=== PATIENT | female | born 1960 | race Caucasian/White ===

== ENCOUNTER 2021-05-22 10:32 | Observation (INO) | payer BC ==
[2021-05-22] MEDS ORDERED: BABY ASPIRIN 81 MG CHEW PO ONE (11:09)
[2021-05-22 11:25] LABS: BASOPHIL % 0.6 % (0.0-0.4); Basophil (Absolute #) 0.05 (0-0.4); Eosinophil % 2.3 % (0.00-5.0); Eosinophil (Absolute #) 0.21 (0-0.5); Hematocrit 36.3 % (35-47); Hemoglobin 11.4 gm/dl (12.0-16.0); Lymphocyte (Absolute #) 2.02 (1.0-4.6); Lymphocytes % 22.4 % (24.0-44.0); Mean Corpuscular Hemoglobin 29.8 pg (26-32); Mean Corpuscular Hgb Concent. 31.4 g/dl (32-36); Monocyte (Absolute #) 0.73 (0.0-1.3); Monocytes % 8.1 % (0.0-12.0); Neutrophil % 66.6 % (36.0-66.0); Platelet Count 300 K/mm3 (150-450); Red Blood Count 3.82 M/mm3 (4.1-5.4); Red Cell Distribution Width 13.7 % (11.5-14.0)
[2021-05-22] MEDS ORDERED: BABY ASPIRIN 81 MG CHEW ONE (11:29)
--- NOTE | 2021-05-22 12:07 | XRAY ---
Indication: Chest pain. Comparison: None Portable apical lordotic chest slightly underinflated and clear. Heart not enlarged. Bony thorax intact with mild osteopenia and degenerative changes. Impression: Nonacute chest with chronic bony findings.
--- NOTE | 2021-05-22 12:44 | ERPHSYRPT ---
- History of Present Illness Time Seen by Provider: 05/22/21 10:39 Historian: patient Exam Limitations: no limitations Patient Subjective Stated Complaint: pt here for fluttering for 2 days now, Triage Nursing Assessment: pt alert, arrived per wc, face mask in place, resp easy, skin w/d/p, abd soft. slight swelling to lower legs she states is normal for her Physician History: 60 years old female with history of hypertension, hyperlipidemia, diabetes mellitus presented in the ER with chief complaint of fluttering sensation since yesterday intermittent initially and continuous since late afternoon yesterday. Patient also report having some pain dull aching underneath her left breast without radiation, mild to moderate without any significant aggravating or relieving factors. Denies any associated shortness of breath. No fever chills cough reported. Denies any history of CAD or rhythm abnormalities. Timing/Duration: yesterday, constant, gradual onset, worse Activities at Onset: rest Quality: aching Chest Pain Radiation: no radiation Severity of Pain-Max: moderate Severity of Pain-Current: mild Modifying Factors: Improves With: nothing Associated Symptoms: fatigue Prior Chest Pain/Cardiac Workup: no prior chest pain, no prior cardiac workup Nitro Today/Relief: no nitro taken today Aspirin Treatment Today: no aspirin today Allergies/Adverse Reactions: No Known Drug Allergies Allergy (Unverified 05/22/21 10:51) Home Medications: Cyanocobalamin (Vitamin B-12) [Vitamin B-12] 1 ea DAILY 05/22/21 [History] Ferrous Sulfate 1 ea DAILY 05/22/21 [History] Furosemide 20 mg [Lasix 20 mg] 1 ea DAILY 05/22/21 [History] Glipizide 10 mg [Glucotrol 10 MG] 1 ea DAILY 05/22/21 [History] Lisinopril 20 mg [Zestril 20 MG] 20 mg PO DAILY 05/22/21 [History] Metformin HCl 500 mg [Glucophage 500 MG] 1,500 mg DAILY 05/22/21 [History] Metformin HCl 500 mg [Glucophage 500 MG] 100 mg DAILY 05/22/21 [History] Potassium Chloride [Klor-Con] 1 ea DAILY 05/22/21 [History] Sitagliptin Phosphate [Januvia] 199 mg PO DAILY 05/22/21 [History] Hx Tetanus, Diphtheria Vaccination/Date Given: No Hx Influenza Vaccination/Date Given: No Hx Pneumococcal Vaccination/Date Given: No Immunizations Up to Date: No Travel Risk - International Travel Have you traveled outside of the country in past 3 weeks: No - Coronavirus Screening Are you exhibiting any of the following symptoms?: No Close contact with a COVID-19 positive Pt in past 14-21 Days: No - Vaccine Status Have you recieved a Covid-19 vaccination: No - Review of Systems Constitutional: No Symptoms Eyes: No Symptoms Ears, Nose, & Throat: No Symptoms Respiratory: No Symptoms Cardiac: Chest Pain, Palpitations Abdominal/Gastrointestinal: No Symptoms Genitourinary Symptoms: No Symptoms Musculoskeletal: No Symptoms Skin: No Symptoms Neurological: No Symptoms Psychological: No Symptoms Endocrine: No Symptoms Hematologic/Lymphatic: No Symptoms Immunological/Allergic: No Symptoms - Past Medical History Pertinent Past Medical History: Yes Cardiac History: High Cholesterol Endocrine Medical History: Diabetes Type II - Past Surgical History Past Surgical History: Yes Female Surgical History: Section - Social History Smoking Status: Never smoker Exposure to second hand smoke: No Drug Use: none Patient Lives Alone: No - Female History Hx Last Menstrual Period: post Hx Now: No - Nursing Vital Signs Nursing Vital Signs: Initial Vital Signs Temperature 97.2 F 05/22/21 10:47 Pulse Rate 77 05/22/21 10:47 Respiratory Rate 18 05/22/21 10:47 Blood Pressure 187/97 05/22/21 10:47 O2 Sat by Pulse Oximetry 96 05/22/21 10:47 Pain Scale Pain Intensity 2 - Physical Exam General Appearance: no apparent distress, alert, anxiety Eye Exam: PERRL/EOMI, eyes nml inspection Ears, Nose, Throat Exam: normal ENT inspection, pharynx normal Neck Exam: normal inspection, non-tender, supple, full range of motion Respiratory Exam: normal breath sounds, lungs clear Cardiovascular Exam: regular rate/rhythm, normal heart sounds Gastrointestinal/Abdomen Exam: soft, normal bowel sounds, No tenderness Back Exam: normal inspection, normal range of motion Extremity Exam: normal inspection, normal range of motion Neurologic Exam: alert, oriented x 3, cooperative, regional forester II-XII nml as tested, No sensation nml, No motor deficits Skin Exam: normal color SpO2 Interpretation: normal SpO2: 95 O2 Delivery: Room Air - Course EKG Interpreted by Me: RATE ([id number]), Sinus Rhythm, NORMAL AXIS, NORMAL INTERVALS, NORMAL QRS Ordered Tests: Active Orders 24 hr Category Date Time Status CHEST 1 VIEW (PORTABLE) Stat Exams 05/22/21 11:09 Completed CHEST WITH CONTRAST [CT] Stat Exams 05/22/21 12:41 Ordered CBC W DIFF Stat Lab 05/22/21 11:15 Completed CMP Stat Lab 05/22/21 11:15 Completed D-DIMER QUANTITATIVE Stat Lab 05/22/21 11:15 Completed NT PRO BNP Stat Lab 05/22/21 11:15 Completed TROPONIN Q3H Lab 05/22/21 11:15 Completed TROPONIN Q3H Lab 05/22/21 14:15 Ordered TROPONIN Q3H Lab 05/22/21 17:15 Ordered TROPONIN Q3H Lab 05/22/21 20:15 Ordered TROPONIN Q3H Lab 05/22/21 23:15 Ordered Transfer Order Routine Transfer 05/22/21 Ordered Medication Summary Generic Name Dose Route Start Last Admin Trade Name Freq PRN Reason Stop Dose Admin Enoxaparin Sodium 125 mg 05/22/21 14:00 Enoxaparin Sodium 120 Mg/0.8 Ml Syringe SQ 06/21/21 13:59 Q12H ELVA Discontinued Medications Generic Name Dose Route Start Last Admin Trade Name Freq PRN Reason Stop Dose Admin Aspirin 324 mg 05/22/21 11:09 05/22/21 11:34 Aspirin 81 Mg Tab.Chew PO 05/22/21 11:10 324 mg STAT ONE Administration Aspirin Confirm 05/22/21 11:29 Aspirin 81 Mg Tab.Chew Administered 05/22/21 11:30 Dose 324 mg .ROUTE .STK-MED ONE Nitroglycerin Confirm 05/22/21 13:23 Nitroglycerin 1 Gm Packet Administered 05/22/21 13:24 Dose 1 gm .ROUTE .STK-MED ONE Nitroglycerin 1 gm 05/22/21 13:25 05/22/21 13:26 Nitroglycerin 1 Gm Packet TOP 05/22/21 13:26 1 gm STAT ONE Administration Lab/Rad Data: Laboratory Result Diagrams 05/22/21 11:15 05/22/21 11:15 Laboratory Results 05/22/21 05/22/21 05/22/21 Range/Units 11:15 11:15 11:15 WBC (4.0-10.5) K/mm3 RBC (4.1-5.4) M/mm3 Hgb (12.0-16.0) gm/dl Hct (35-47) % MCV (78-100) fl MCH (26-32) pg MCHC (32-36) g/dl RDW (11.5-14.0) % Plt Count (150-450) K/mm3 MPV (7.5-11.0) fl Gran % (36.0-66.0) % Eos # (Auto) (0-0.5) Absolute Lymphs (auto) (1.0-4.6) Absolute Monos (auto) (0.0-1.3) Lymphocytes % (24.0-44.0) % Monocytes % (0.0-12.0) % Eosinophils % (0.00-5.0) % Basophils % (0.0-0.4) % Absolute Granulocytes (1.4-6.9) Basophils # (0-0.4) D-Dimer 884 H* (215-500) ng/mL Sodium 140 (137-145) mmol/L Potassium 5.2 H (3.5-5.1) mmol/L Chloride 104 (98-107) mmol/L Carbon Dioxide 27 (22-30) mmol/L Anion Gap 15.0 (5-15) MEQ/L BUN 25 H (7-17) mg/dL Creatinine 1.35 H (0.52-1.04) mg/dL Estimated GFR 42.7 ML/MIN Glucose 96 (74-106) mg/dL Calcium 9.5 (8.4-10.2) mg/dL Total Bilirubin 0.40 (0.2-1.3) mg/dL AST 24 (14-36) U/L ALT 23 (0-35) U/L Alkaline Phosphatase 81 (38-126) U/L Troponin I < 0.012 (0.000-0.034) ng/mL NT-Pro-B Natriuret Pep 160 (0-900) pg/mL Serum Total Protein 7.1 (6.3-8.2) g/dL Albumin 4.0 (3.5-5.0) g/dL // Range/Units 11:15 WBC 9.0 (4.0-10.5) K/mm3 RBC 3.82 L (4.1-5.4) M/mm3 Hgb 11.4 L (12.0-16.0) gm/dl Hct 36.3 (35-47) % MCV 95.0 (78-100) fl MCH 29.8 (26-32) pg MCHC 31.4 L (32-36) g/dl RDW 13.7 (11.5-14.0) % Plt Count 300 (150-450) K/mm3 MPV 11.0 (7.5-11.0) fl Gran % 66.6 H (36.0-66.0) % Eos # (Auto) 0.21 (0-0.5) Absolute Lymphs (auto) 2.02 (1.0-4.6) Absolute Monos (auto) 0.73 (0.0-1.3) Lymphocytes % 22.4 L (24.0-44.0) % Monocytes % 8.1 (0.0-12.0) % Eosinophils % 2.3 (0.00-5.0) % Basophils % 0.6 (0.0-0.4) % Absolute Granulocytes 6.00 (1.4-6.9) Basophils # 0.05 (0-0.4) D-Dimer (215-500) ng/mL Sodium (137-145) mmol/L Potassium (3.5-5.1) mmol/L Chloride (98-107) mmol/L Carbon Dioxide (22-30) mmol/L Anion Gap (5-15) MEQ/L BUN (7-17) mg/dL Creatinine (0.52-1.04) mg/dL Estimated GFR ML/MIN Glucose (74-106) mg/dL Calcium (8.4-10.2) mg/dL Total Bilirubin (0.2-1.3) mg/dL AST (14-36) U/L ALT (0-35) U/L Alkaline Phosphatase (38-126) U/L Troponin I (0.000-0.034) ng/mL NT-Pro-B Natriuret Pep (0-900) pg/mL Serum Total Protein (6.3-8.2) g/dL Albumin (3.5-5.0) g/dL - Progress Progress: improved Air Movement: fair, good Progress Note: 12/14/21 13:55 60-year-old is evaluated for palpitations and chest pain with no previous history of CAD. EKG showed normal sinus rhythm without any acute ischemic changes and negative initial troponin. Chest x-ray negative for any acute cardiopulmonary findings. Patient has a D-dimer and 800 but has a GFR around 42, cannot do CTA per radiology protocols. I have discussed with Dr. Cabrera, reviewed history, work-up, recommended obtaining VQ scan which would be done day after tomorrow as no nuclear studies are done except on . In the meanwhile she would be anticoagulated with Lovenox. Plan discussed with patient to understand and agrees with it. Blood Culture(s) Obtained: No Antibiotics given: No Discussed with .: Misa Will see patient in: hospital (observation) Counseled pt/family regarding: lab results, diagnosis, rad results - Departure Departure Disposition: Observation Clinical Impression: Chest pain, rule out acute myocardial infarction, Palpitations Condition: Stable Critical Care Time: No
[2021-05-22 12:52] LABS: BILIRUBIN,TOTAL 0.4 mg/dL (0.2-1.3); Calcium 9.5 mg/dL (8.4-10.2); Creatinine 1 1.35 mg/dL (0.52-1.04); EST GLOMERULAR FILTRATION RATE 42.7 ML/MIN; Potassium 5.2 mmol/L (3.5-5.1); Total Protein 7.1 g/dL (6.3-8.2)
[2021-05-22] MEDS ORDERED: NITRO-BID 2% UD PACKETS ONE (13:23)
[2021-05-22] MEDS ORDERED: NITRO-BID 2% UD PACKETS TOP ONE (13:25)
[2021-05-22] MEDS ORDERED: ENOXAPARIN SODIUM SQ SCH (14:00)
[2021-05-22] MEDS ORDERED: ENOXAPARIN SODIUM SQ ONE (14:30)
[2021-05-22 15:20] LABS: INFLUENZA A NEGATIVE (NEGATIVE); INFLUENZA B NEGATIVE (NEGATIVE); RESPIRATORY SYNCTIAL VIRUS NEGATIVE (Negative); SARS-CoV-2 Xpert Express NEGATIVE (NEGATIVE)
[2021-05-22] MEDS ORDERED: HUMALOG SQ PRN (15:50)
[2021-05-22] MEDS ORDERED: Zofran 4 MG/2 ML VIAL IV PRN (15:50)
[2021-05-22] MEDS ORDERED: DUONEB 0.5-3 MG/3 ml Neb IH PRN (15:50)
[2021-05-22] MEDS ORDERED: TYLENOL 325 MG PO PRN (15:50)
[2021-05-22] MEDS ORDERED: MORPHINE SULFATE 2 MG INJ IV PRN (15:50)
[2021-05-22] MEDS ORDERED: Glucophage 500 MG PO SCH (18:00)
[2021-05-22] MEDS ORDERED: Glucotrol Xl 10 MG PO ONE (18:50)
[2021-05-22] MEDS ORDERED: Glucotrol 5 MG ONE (18:55)
[2021-05-22] MEDS ORDERED: NON-FORMULARY ITEM (Glipizide 10 Mg*** [Glucotrol 10 Mg***] 10 MG Tablet) PO SCH (22:00)
[2021-05-22] MEDS ORDERED: Glucotrol 5 MG PO SCH (22:00)
[2021-05-23] MEDS ORDERED: ENOXAPARIN SODIUM SQ SCH (03:00)
[2021-05-23 05:46] LABS: Absolute Neutrophil Ct (ANC) 6.09 (1.4-6.9); BASOPHIL % 0.5 % (0.0-0.4); Basophil (Absolute #) 0.05 (0-0.4); Eosinophil % 2.7 % (0.00-5.0); Eosinophil (Absolute #) 0.25 (0-0.5); Hematocrit 35.5 % (35-47); Lymphocyte (Absolute #) 2.13 (1.0-4.6); Lymphocytes % 23.2 % (24.0-44.0); Mean Cell Volume 96.2 fl (78-100); Mean Corpuscular Hemoglobin 29.8 pg (26-32); Mean Platelet Volume 11.6 fl (7.5-11.0); Monocyte (Absolute #) 0.68 (0.0-1.3); Monocytes % 7.4 % (0.0-12.0); Neutrophil % 66.2 % (36.0-66.0); Platelet Count 297 K/mm3 (150-450); Red Blood Count 3.69 M/mm3 (4.1-5.4); Red Cell Distribution Width 13.8 % (11.5-14.0); White Blood Count 9.2 K/mm3 (4.0-10.5)
[2021-05-23 05:55] LABS: ALBUMIN 3.6 g/dL (3.5-5.0); ANION GAP 11.4 MEQ/L (5-15); BILIRUBIN,TOTAL 0.3 mg/dL (0.2-1.3); Calcium 8.9 mg/dL (8.4-10.2); Creatinine 1 1.35 mg/dL (0.52-1.04); EST GLOMERULAR FILTRATION RATE 42.7 ML/MIN; Potassium 4.3 mmol/L (3.5-5.1); Total Protein 6.8 g/dL (6.3-8.2)
[2021-05-23] MEDS ORDERED: Glucophage 500 MG PO SCH (08:00)
[2021-05-23] MEDS ORDERED: Glucotrol 5 MG PO SCH (08:00)
[2021-05-23] MEDS: PROTONIX 40 MG IV IV SCH ×2 (08:28)
[2021-05-23] MEDS ORDERED: Klor Con 10 MEQ PO SCH (10:00)
[2021-05-23] MEDS ORDERED: Zestril 20 MG PO SCH (10:00)
[2021-05-23] MEDS ORDERED: FEOSOL 325 MG PO SCH (10:00)
[2021-05-23] MEDS ORDERED: Januvia 50 MG PO SCH (10:00)
[2021-05-23] MEDS ORDERED: LASIX 20 MG PO SCH (10:00)
[2021-05-23] MEDS ORDERED: FOLATE 1 MG PO SCH (10:00)
[2021-05-23] MEDS ORDERED: Vitamin B-12 500 MCG PO SCH (10:00)
[2021-05-23] MEDS ORDERED: NON-FORMULARY ITEM (Cyanocobalamin (Vitamin B-12) [Vitamin B-12] 1,000 MCG Capsule) PO SCH (10:00)
--- NOTE | 2021-05-23 11:01 | XRAY ---
Indication: Left arm weakness. Stroke. Multiple contiguous axial images obtained through the head without contrast. Comparison: None Age-appropriate global atrophy and minimal periventricular degenerative micro-ischemia bilaterally. Anterior limb right internal capsule demonstrates tiny remote lacunar infarct. No acute intracranial hemorrhage, abnormal extra-axial fluid collection, or mass effect. Fourth ventricle is midline without hydrocephalus. Robins-white matter differentiation is preserved. Bony calvarium intact. Visualized paranasal sinuses and mastoid air cells are clear. Impression: Atrophy and degenerative micro-ischemia within normal limits for patient's age. Remote lacunar infarct right internal capsule. No acute intracranial abnormalities.
--- NOTE | 2021-05-23 11:38 | SSS ---
DISCHARGE DIAGNOSES: 1) CHEST FLUTTER. 2) LEFT ARM WEAKNESS. HISTORY OF PRESENT ILLNESS: The patient is a 60-year-old white female who presented to the emergency room with complaints of left chest fluttering and soreness over the left sternal border. The patient was seen in the emergency room and felt the need to be admitted for cardiac evaluation and evaluation of the patient's complaint of left arm weakness. The patient also had an elevated D-dimer which could not be evaluated due to elevation of creatinine. The patient had been seeing Dr. Peters previously and saw Tamanna Cagle but the patient is new to me otherwise. PAST MEDICAL/SURGICAL HISTORY: Includes issues with diabetes mellitus type II. She has had previous section. She is menopausal. HOME MEDICATIONS: Currently include Lasix 20 mg a day, glipizide 10 mg twice a day, lisinopril 20 mg a day, metformin 500 mg 2 tablets with evening meal and 3 tablets in the morning. She is on potassium 10 mEq a day, sitagliptin 100 mg a day. ALLERGIES: NKDA. SOCIAL HISTORY: She is a nonsmoker. PHYSICAL EXAMINATION: The patient's vital signs on admission showed temperature 97.2F, pulse 77, respiratory rate 18 and blood pressure 187/97. O2 saturation 96%. HEENT: Normocephalic, atraumatic. Pupils equal round reactive to light. Extraocular movements intact. Oropharynx is pink and moist. NECK: Supple without lymphadenopathy, thyromegaly or JVD. CHEST: Clear to auscultation. HEART: Regular rate and rhythm. There was noted some slight tenderness left sternal border. ABDOMEN: Soft. No palpable masses. EXTREMITIES: Without cyanosis, clubbing or edema. 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 LAB DATA AND TESTS: The patient's laboratory studies have shown negative COVID test as well as influenza and RSV. The white count is 9.0, hemoglobin 11.4, PLT count 3000,000. Her glucose is 96 nonfasting, BUN 25, creatinine 1.35. Potassium slightly elevated at 5.2. Electrolytes were normal. Liver enzymes were normal. Pro-BNP was normal. The patient did have a slight elevation in her D-dimer at 884. She could not have CT of the chest due to the elevation in her creatinine. She will be scheduled for VQ scan as an outpatient which may be performed tomorrow as an outpatient. The patient's troponins have all been negative at 0.012. Her chest x-ray was nonacute. Her EKG findings and telemetry tracing showing her to be in sinus rhythm during her visit in the emergency room and all day long and all night on telemetry in the [facility]. HOSPITAL COURSE: The patient is now felt to be ready for discharge home again. We feel that the fluttering in the chest, left sternal border tenderness is possible muscle circulation as this is not showing up to be anything on EKG during her complaint. The patient will otherwise have CT scan of the brain without contrast or MRI if possible to look into the possibility of transient ischemic attack or evolving stroke although this appears to be very unlikely given her physical findings on examination. The patient otherwise has been given Lovenox during her stay due to the elevation in her D-dimer until a VQ scan can be obtained. The patient is otherwise sent home on her usual medications. She seemed to be completely well this morning. We are intending to send her home after the CT or MRI of the brain as long as it is normal and she will follow up as an outpatient after VQ scan to begin her transition to our care for her long-term medical management of her diabetes and renal issues which are likely secondary to the diabetes.
[2021-05-23 13:07] VITALS: BP 159/76; PULSE 80; O2SAT 95
== END 2021-05-23 11:56 | disposition home or self-care (01) ==
LOC: ED 10:32 → MED SURG 15:40
PROVIDERS: ADMIT Family Medicine; ATTEND Family Medicine
DX: I49.8 Other specified cardiac arrhythmias (principal); I25.10 Atherosclerotic heart disease of native coronary artery without angina pectoris; R00.2 Palpitations; R07.9 Chest pain, unspecified; M62.81 Muscle weakness (generalized); R79.89 Other specified abnormal findings of blood chemistry; I10 Essential (primary) hypertension; E78.5 Hyperlipidemia, unspecified; E11.9 Type 2 diabetes mellitus without complications; Z79.899 Other long term (current) drug therapy; Z20.828 Contact with and (suspected) exposure to other viral communicable diseases
CPT/HCPCS: 0241U; 36415; 70450; 71045; 80053; 82947; 83880; 84484; 85025; 85379; 93268; 96372; 99285; G0378; J1650; A9270-GY

== ENCOUNTER 2024-09-18 18:20 | Emergency (ER) | payer BC ==
[2024-09-18 18:43] VITALS: TEMP 97.6
--- NOTE | 2024-09-18 18:48 | ERPHSYRPT ---
- History of Present Illness Source: patient, family Exam Limitations: no limitations Patient Subjective Stated Complaint: Pt c/o of dizziness, lightheadedness, weakness, and cramps in her legs that usually come on at night Triage Nursing Assessment: Pt brought to the ER by her , hypertensive, denies pain at this time, pulses normal, skin n/w/d, denies chest pain, denies difficulty breathing, doesn't appear to be in any distress Timing/Duration: today, day(s) (For few days), worse Severity: mild (To moderate) Character of Deficits: other (Generalized weakness) Deficits: no difficulties Baseline/Normal Cognition: alert oriented x 3 Current Cognition: alert oriented x 3 Baseline Gait: walks w/o assistance Associated Symptoms: weakness (Mineralized), No vision changes, No chest pain, No headache Hx Tetanus, Diphtheria Vaccination/Date Given: No Hx Influenza Vaccination/Date Given: No Hx Pneumococcal Vaccination/Date Given: No <JONO GRUBER - Last Filed: 09/18/24 18:55> <AVRIL SAINI - Last Filed: 09/18/24 21:52> - History of Present Illness Time Seen by Provider: 09/18/24 18:47 Physician History: This is an obese 64-year-old white female patient of Dr. Coley who arrives by private vehicle accompanied by her spouse with a complaint of bilateral lower extremity cramping, primarily at night and intermittent dizziness over the last few days as well. She denies chest pain. She denies shortness of breath. Patient has a history of hypertension and takes lisinopril and amlodipine. She also has a history of diabetes. She feels lightheaded and weak as well. (JONO GRUBER) Allergies/Adverse Reactions: No Known Drug Allergies Allergy (Verified 09/18/24 18:43) Home Medications: Cyanocobalamin (Vitamin B-12) [Vitamin B-12] 1,000 mcg PO DAILY 05/22/21 [History] Folic Acid 1 mg PO DAILY 05/22/21 [History] Glipizide 10 mg [Glucotrol 10 MG] 10 mg PO BID 05/22/21 [History] Lisinopril 20 mg [Zestril 20 MG] 20 mg PO DAILY 05/22/21 [History] Metformin HCl 500 mg [Glucophage 500 MG] 1,000 mg PO BID 05/22/21 [History] Amlodipine Besylate 5 mg [Norvasc 5 mg] 5 mg PO DAILY 09/18/24 [History] Empagliflozin [Jardiance] 10 mg PO DAILY 09/18/24 [History] Ergocalciferol (Vitamin D2) [Vitamin D2] 50,000 unit PO Q7D 09/18/24 [History] Travel Risk - International Travel Have you traveled outside of the country in past 3 weeks: No - Emerging Infectious Disease Are you exhibiting symptoms associated with any current EIDs: No <JONO GRUBER - Last Filed: 09/18/24 18:55> - Review of Systems Constitutional: No Symptoms, Weakness (Generalized) Ears, Nose, & Throat: No Symptoms Respiratory: No Symptoms Cardiac: No Symptoms Abdominal/Gastrointestinal: No Symptoms Genitourinary Symptoms: No Symptoms Musculoskeletal: Other (Cramping bilateral lower extremities) Neurological: Dizziness Psychological: No Symptoms Endocrine: No Symptoms Hematologic/Lymphatic: No Symptoms Immunological/Allergic: No Symptoms All Other Systems: Reviewed and Negative <JONO GRUBER - Last Filed: 09/18/24 18:55> - Past Medical History Pertinent Past Medical History: Yes Cardiac History: High Cholesterol Endocrine Medical History: Diabetes Type II - Past Surgical History Past Surgical History: Yes Female Surgical History: Section Other Surgical History: 3X C-SECTIONS - Social History Smoking Status: Never smoker Exposure to second hand smoke: No Drug Use: none - Social Determinants of Health Will the patient participate in the screening: Yes Do you worry about a steady place to live?: No Do you have any problems with any of the following?: No known problems In the past 12 months,have you had to go without utilities?: No Transportation Issues: No Has anyone in your support network made you feel unsafe?: No Have you or anyone in your house had to go w/o enough food: No <JONO GRUBER - Last Filed: 09/18/24 18:55> - [place] Coma Scale Best Eye Response (Bob): (4) open spontaneously Best Verbal Response (Bob): (5) oriented Best Motor Response (Bob): (6) obeys commands Bob Total: 15 - Physical Exam General Appearance: no apparent distress, alert, anxiety, obese Eye Exam: bilateral eye: normal inspection, PERRL, EOMI Ears, Nose, Throat Exam: normal ENT inspection, moist mucous membranes Neck Exam: normal inspection, non-tender, supple, full range of motion Respiratory: normal breath sounds, lungs clear, airway intact, No chest tenderness, No respiratory distress Cardiovascular: regular rate/rhythm, normal heart sounds, normal peripheral pulses Gastrointestinal: soft, normal bowel sounds, No tenderness Pelvic Exam: not done Rectal Exam: not done Back Exam: normal inspection, normal range of motion, No CVA tenderness, No vertebral tenderness Extremity Exam: normal inspection, normal range of motion, pelvis stable Mental Status: alert, oriented x 3, cooperative lineworker Exam: normal hearing, normal speech, PERRL Coordination/Gait: normal gait, normal cerebellar function Motor/Sensory: no motor deficit, no sensory deficit Skin Exam: normal color, warm, dry SpO2 Interpretation: normal SpO2: 98 O2 Delivery: Room Air <JONO GRUBER - Last Filed: 09/18/24 18:55> - Nursing Vital Signs Nursing Vital Signs: Initial Vital Signs Temperature 97.6 F 09/18/24 18:30 Pulse Rate 84 09/18/24 18:30 Respiratory Rate 21 09/18/24 18:30 Blood Pressure 203/92 09/18/24 18:30 O2 Sat by Pulse Oximetry 98 09/18/24 18:30 Pain Scale Pain Intensity 0 - Course Nursing assessment & vital signs reviewed: Yes EKG Interpreted by Me: RATE (83), Sinus Rhythm, NORMAL AXIS, NORMAL INTERVALS, NORMAL QRS, NORMAL ST-T, Other (QTc is 444. No acute ischemia on today's twelve-lead EKG.) <JONO GRUBER - Last Filed: 09/18/24 18:55> Ordered Tests: Active Orders 24 hr Category Date Time Status EKG-ER Only STAT Care 09/18/24 19:02 Active IV Insertion STAT Care 09/18/24 19:02 Active HEAD WITHOUT CONTRAST [CT] Stat Exams 09/18/24 19:01 Completed CBC W DIFF Stat Lab 09/18/24 19:00 Completed CMP Stat Lab 09/18/24 19:00 Completed D-DIMER QUANTITATIVE Stat Lab 09/18/24 19:00 Completed MAGNESIUM Stat Lab 09/18/24 19:00 Completed TROPONIN Q4H Lab 09/18/24 19:00 Completed TROPONIN Q4H Lab 09/18/24 23:15 Ordered TROPONIN Q4H Lab 09/19/24 03:15 Ordered UA W/RFX UR CULTURE Stat Lab 09/18/24 19:52 Completed Lab/Rad Data: Laboratory Result Diagrams 09/18/24 19:00 09/18/24 19:00 Laboratory Results 09/18/24 09/18/24 09/18/24 Range/Units 19:52 19:00 19:00 WBC (3.98-10.04) x10^3/uL RBC (3.93-5.22) x10^6/uL Hgb (11.2-15.7) g/dL Hct (34.1-44.9) % MCV (79.4-94.8) fL MCH (25.6-32.2) pg MCHC (32.2-35.5) g/dL RDW (11.7-14.4) % Plt Count (182-369) x10^3/uL MPV (9.4-12.3) fL Gran % (34.0-71.1) % Immature Gran % (Auto) (0.001-0.429) % Nucleat RBC Rel Count (0.00-0.2) % Eos # (Auto) (0.04-0.36) x10^3/uL Immature Gran # (Auto) (0.001-0.031) x10^3u/L Absolute Lymphs (auto) (1.18-3.74) x10^3/uL Absolute Monos (auto) (0.24-0.86) x10^3/uL Absolute Nucleated RBC (0.00-0.012) x10^3u/L Lymphocytes % (19.3-51.7) % Monocytes % (4.7-12.5) % Eosinophils % (0.7-5.8) % Basophils % (0.1-1.2) % Absolute Granulocytes (1.56-6.13) x10^3/uL Basophils # (0.01-0.08) x10^3/uL D-Dimer 0.63 H* (0.0-0.50) mg/L Sodium (135-145) mmol/L Potassium (3.5-5.1) mmol/L Chloride (98-107) mmol/L Carbon Dioxide (22-30) mmol/L Anion Gap (5-15) MEQ/L BUN (7-17) mg/dL Creatinine (0.52-1.04) mg/dL Estimated GFR ML/MIN Glucose (74-106) mg/dL Calcium (8.4-10.2) mg/dL Magnesium (1.6-2.3) mg/dL Total Bilirubin (0.2-1.3) mg/dL AST (14-36) U/L ALT (0-35) U/L Alkaline Phosphatase (38-126) U/L Troponin I < 0.012 (0.000-0.033) ng/mL Serum Total Protein (6.3-8.2) g/dL Albumin (3.5-5.0) g/dL Urine Color Yellow (Yellow) Urine Appearance Clear (Clear) Urine pH 5.0 (4.6-8.0) Ur Specific [place] 1.015 (1.005-1.030) Urine Protein Trace A (Negative) Urine Glucose (UA) >=1000 A (Negative) mg/dL Urine Ketones Negative (Negative) Urine Blood Negative (Negative) Urine Nitrite Negative (Negative) Urine Bilirubin Negative (Negative) Urine Urobilinogen 0.2 (0.2) mg/dL Ur Leukocyte Esterase Negative (Negative) U Hyaline Cast (Auto) NONE SEEN (0-2) /LPF Urine Microscopic RBC 0-2 (0-5) /HPF Urine Microscopic WBC 0-2 (0-5) /HPF Ur Epithelial Cells None Seen (None Seen) /HPF Urine Bacteria None Seen (None Seen) /HPF Urine Culture Reflexed NO (NO) 09/18/24 09/18/24 Range/Units 19:00 19:00 WBC 10.4 H (3.98-10.04) x10^3/uL RBC 3.82 L (3.93-5.22) x10^6/uL Hgb 11.5 (11.2-15.7) g/dL Hct 35.1 (34.1-44.9) % MCV 91.9 (79.4-94.8) fL MCH 30.1 (25.6-32.2) pg MCHC 32.8 (32.2-35.5) g/dL RDW 13.2 (11.7-14.4) % Plt Count 294 (182-369) x10^3/uL MPV 11.2 (9.4-12.3) fL Gran % 63.4 (34.0-71.1) % Immature Gran % (Auto) 0.3 (0.001-0.429) % Nucleat RBC Rel Count 0.0 (0.00-0.2) % Eos # (Auto) 0.27 (0.04-0.36) x10^3/uL Immature Gran # (Auto) 0.03 (0.001-0.031) x10^3u/L Absolute Lymphs (auto) 2.69 (1.18-3.74) x10^3/uL Absolute Monos (auto) 0.72 (0.24-0.86) x10^3/uL Absolute Nucleated RBC 0.00 (0.00-0.012) x10^3u/L Lymphocytes % 25.8 (19.3-51.7) % Monocytes % 6.9 (4.7-12.5) % Eosinophils % 2.6 (0.7-5.8) % Basophils % 1.0 (0.1-1.2) % Absolute Granulocytes 6.63 H (1.56-6.13) x10^3/uL Basophils # 0.10 H (0.01-0.08) x10^3/uL D-Dimer (0.0-0.50) mg/L Sodium 138 (135-145) mmol/L Potassium 4.8 (3.5-5.1) mmol/L Chloride 103 (98-107) mmol/L Carbon Dioxide 21 L (22-30) mmol/L Anion Gap 18.4 H (5-15) MEQ/L BUN 47 H (7-17) mg/dL Creatinine 1.68 H (0.52-1.04) mg/dL Estimated GFR 34.0 ML/MIN Glucose 165 H (74-106) mg/dL Calcium 9.3 (8.4-10.2) mg/dL Magnesium 2.1 (1.6-2.3) mg/dL Total Bilirubin 0.50 (0.2-1.3) mg/dL AST 38 H (14-36) U/L ALT 31 (0-35) U/L Alkaline Phosphatase 80 (38-126) U/L Troponin I (0.000-0.033) ng/mL Serum Total Protein 7.7 (6.3-8.2) g/dL Albumin 4.6 (3.5-5.0) g/dL Urine Color (Yellow) Urine Appearance (Clear) Urine pH (4.6-8.0) Ur Specific [place] (1.005-1.030) Urine Protein (Negative) Urine Glucose (UA) (Negative) mg/dL Urine Ketones (Negative) Urine Blood (Negative) Urine Nitrite (Negative) Urine Bilirubin (Negative) Urine Urobilinogen (0.2) mg/dL Ur Leukocyte Esterase (Negative) U Hyaline Cast (Auto) (0-2) /LPF Urine Microscopic RBC (0-5) /HPF Urine Microscopic WBC (0-5) /HPF Ur Epithelial Cells (None Seen) /HPF Urine Bacteria (None Seen) /HPF Urine Culture Reflexed (NO) <JONO GRUBER - Last Filed: 09/18/24 18:55> <AVRIL SAINI - Last Filed: 09/18/24 21:52> - Progress Progress Note: 09/18/24 18:59 My medical decision making the assignment of moderate complexity to this patient's medical issue today is based on review of the patient's past medical history, review the patient's medication list, reviewed patient drug allergy list, history present illness and physical findings on examination. The workup in this patient includes placement of intravenous line, twelve-lead EKG, CT scan of the head, troponin level, D-dimer level, magnesium level, CBC, CMP and urinalysis. Differential diagnosis includes but is not limited to acute intracranial abnormality, myocardial infarction, arrhythmia, electrolyte abnormalities, urinary tract infection, DVT I am transferring care of this patient to Dr. Saini at shift change. He we will follow-up on pending workup results and make final disposition. (RA CRISTINA GRUBER) The patient was observed. We are waiting on labs to come back. Her D-dimer was barely elevated.Her CT of the head showed no acute findings. Her lab work all looked good except forShe was dehydrated. Her BUN and creatinine were both elevated. Her electrolytes look good. I think at this time she is just a little dehydrated. I am going to give her a liter of fluids and encouraged her to increase her water intake. 09/18/24 21:51 (AVRIL SAINI) Medical Desision Making - Independent Historian Additional History obtained from: Spouse - Diagnostic Testing Radiological Interpretation: Reviewed by me - Risk of complications Minimal Risk: Minimal risk of morbidity <AVRIL SAINI - Last Filed: 09/18/24 21:52> - Departure Departure Disposition: Home Critical Care Time: No <JONO GRUBER - Last Filed: 09/18/24 18:55> <AVIRL SAINI - Last Filed: 09/18/24 21:52> - Departure Clinical Impression: Dizziness, Cramps of lower extremity Condition: Stable Referrals: KEON COLEY [Primary Care Provider] - Follow up/PCP as directed Instructions: Hypovolemia in adults
[2024-09-18 19:07] LABS: Absolute Neutrophil Ct (ANC) 6.63 x10^3/uL (1.56-6.13); Eosinophil % 2.6 % (0.7-5.8); Eosinophil (Absolute #) 0.27 x10^3/uL (0.04-0.36); Hematocrit 35.1 % (34.1-44.9); Hemoglobin 11.5 g/dL (11.2-15.7); IMMATURE GRAN # 0.03 x10^3u/L (0.001-0.031); IMMATURE GRAN % 0.3 % (0.001-0.429); Lymphocyte (Absolute #) 2.69 x10^3/uL (1.18-3.74); Lymphocytes % 25.8 % (19.3-51.7); Mean Cell Volume 91.9 fL (79.4-94.8); Mean Corpuscular Hemoglobin 30.1 pg (25.6-32.2); Mean Corpuscular Hgb Concent. 32.8 g/dL (32.2-35.5); Mean Platelet Volume 11.2 fL (9.4-12.3); Monocyte (Absolute #) 0.72 x10^3/uL (0.24-0.86); Monocytes % 6.9 % (4.7-12.5); Neutrophil % 63.4 % (34.0-71.1); Platelet Count 294 x10^3/uL (182-369); Red Blood Count 3.82 x10^6/uL (3.93-5.22); Red Cell Distribution Width 13.2 % (11.7-14.4); White Blood Count 10.4 x10^3/uL (3.98-10.04)
[2024-09-18 19:21] LABS: ALBUMIN 4.6 g/dL (3.5-5.0); ANION GAP 18.4 MEQ/L (5-15); BILIRUBIN,TOTAL 0.5 mg/dL (0.2-1.3); Calcium 9.3 mg/dL (8.4-10.2); Creatinine 1 1.68 mg/dL (0.52-1.04); MAGNESIUM 2.1 mg/dL (1.6-2.3); Potassium 4.8 mmol/L (3.5-5.1); Total Protein 7.7 g/dL (6.3-8.2)
[2024-09-18 20:24] LABS: Appearance Clear (Clear); Bacteria None Seen /HPF (None Seen); Bilirubin Negative (Negative); Blood Negative (Negative); Epithelial Cells None Seen /HPF (None Seen); Glucose, Urine >=1000 mg/dL (Negative); Hyaline Casts NONE SEEN /LPF (0-2); Ketones Negative (Negative); Leukocyte Esterase Negative (Negative); Nitrite Negative (Negative); Protein,Urine Dip Trace (Negative); RBC 0-2 /HPF (0-5); Specific Gravity 1.015 (1.005-1.030); Urobilinogen 0.2 mg/dL (0.2); WBC 0-2 /HPF (0-5)
--- NOTE | 2024-09-18 20:29 | XRAY ---
CLINICAL HISTORY: Hypertension; dizziness COMPARISON: 05/23/2021 TECHNIQUE: Axial non-contrast CT scan of the brain was performed from the skull base to the high parietal region. One of the following dose reduction techniques were utilized for this exam: Automated exposure control, adjustment of the mA and/or kV according to patient size, use of iterative reconstruction. FINDINGS: Brain Parenchyma: Normal attenuation of the cerebral hemispheres and brainstem. No evidence of hemorrhage, or mass effect. No abnormal areas of hyperattenuation. Ventricular System: Ventricles are normal in size and configuration. No evidence of hydrocephalus or ventricular enlargement. Subarachnoid Spaces: Mild widened cortical sulci and extra-axial CSF spaces. No evidence of subarachnoid hemorrhage or extra-axial fluid collections. Brainstem: Normal size and attenuation. No masses, lesions, or areas of abnormal attenuation. Sinuses: Clear paranasal sinuses. No evidence of sinusitis or mucosal thickening. Mastoid Air Cells: Clear mastoid air cells. No evidence of mastoiditis. Skull: Normal skull morphology. IMPRESSION: Mild age-related atrophic changes. Electronically Signed by: Kiara Gutiérrez MD. (09/18/2024 20:24:55 EDT)
[2024-09-18] MEDS ORDERED: Sodium Chloride 0.9% 1000 ML 1,000 ML ONE (22:31)
[2024-09-18] MEDS: Sodium Chloride 0.9% 1000 ML 1,000 ML IV STA (22:32)
[2024-09-18 23:02] VITALS: BP 143/92; PULSE 75; RESP 22; O2SAT 94
== END 2024-09-18 23:50 | disposition home or self-care (01) ==
LOC: ED 18:20
DX: R42 Dizziness and giddiness (principal); R25.2 Cramp and spasm; E11.9 Type 2 diabetes mellitus without complications; E78.5 Hyperlipidemia, unspecified; Z79.84 Long term (current) use of oral hypoglycemic drugs; Z79.899 Other long term (current) drug therapy
CPT/HCPCS: 36415; 70450; 80053; 81001; 83735; 84484; 85025; 85379; 93005; 96360; 99284; 99285